=== PATIENT | male | born 1990 | race Caucasian/White ===

== ENCOUNTER 2018-02-07 10:54 | Emergency (ER) | payer SELFPAY ==
--- NOTE | 2018-02-07 11:03 | EDM.PDOC ---
ED HPI GENERAL MEDICAL PROBLEM - General Chief Complaint: Lower Extremity Injury/Pain Stated Complaint: HURT FOOT Time Seen by Provider: 02/07/18 11:02 Source of Information: Reports: Patient History Limitations: Reports: No Limitations - History of Present Illness INITIAL COMMENTS - FREE TEXT/NARRATIVE: HISTORY AND PHYSICAL: []27-year-old male presenting with pain to the right History of Present Illness: []Client was out last night drinking and going down some steps and slipped extending his foot forward causing pain to the top of his foot Review of Systems: As per history of present illness and below otherwise all systems reviewed and negative. Past medical history: As per history of present illness and as reviewed below otherwise noncontributory. Surgical history: As per history of present illness and as reviewed below otherwise noncontributory. Social history: No reported history of drug or alcohol abuse. Family history: As per history of present illness and as reviewed below otherwise noncontributory. Physical exam: Alert and oriented gentleman who is accompanied by his mother. Answering questions appropriately in full sentences. MOther likes to answer for him. HEENT: Atraumatic, normocehpalic, pupils reactive, negative for conjunctival pallor or scleral icterus, mucous membranes moist, throat clear, neck supple, nontender, trachea midline. Lungs: Clear to auscultation, breath sounds equal bilaterally, chest non tender. Heart: S1S2, regular, negative for clicks, rubs, or JVD. Abdomen: Soft, nondistended, nontender. Negative for masses or hepatossplenmegaly. Negative for costovertebral tenderness. Pelvis: Stable nontender. Genitourinary: Deferred. Rectal: Deferred Extremities: Atraumatic, negative for cords or calf pain. Mild dorsal edema, good extension ,less flexion. Pedal pulses are good Neurovascular unremarkable. Neuro: Awake, alert, oriented. Cranial nerves II through XII unremarkable. Cerebellum unremarkable. Motor and sensory unremarkable throughout. Exam nonfocal. Discussed with the patient and his mother that his foot is not broken however he has likely stretched the ligaments and will take a while to heal Tej wrap will be applied to give some support to this area Diagnostics: X-ray right foot[] Therapeutics: [] Impression: [Foot strain] Plan: []Discharged to home Elevate and ice your foot on 20 minutes off 20 minutes If not improving may need to see a teacher of the hearing impaired Definitive disposition and diagnosis as appropriate pending reevaluation and review of above. Onset: Today Right Feet Pain Score (Numeric/FACES): 8 - Related Data Allergies Allergy/AdvReac Type Severity Reaction Status Date / Time No Known Allergies Allergy Verified 02/07/18 11:08 Home Meds: Home Meds . [No Known Home Meds] 02/07/18 [History] Review of Systems - Review of Systems Review Of Systems: ROS reveals no pertinent complaints other than HPI. ED EXAM, GENERAL - Physical Exam Exam: See Below (see dictation) Course - Vital Signs Last Recorded V/S: Last Vital Signs Temp 36.7 C 02/07/18 11:04 Pulse 107 H 02/07/18 11:04 Resp 18 02/07/18 11:04 BP 125/60 02/07/18 11:04 Pulse Ox 98 02/07/18 11:04 - Orders/Labs/Meds Orders: Active Orders 24 hr Category Date Time Status Splinting [RC] ASDIRECTED Care 02/07/18 12:04 Ordered Foot 2V Rt [CR] Stat Exams 02/07/18 11:15 Taken Departure - Departure Time of Disposition: 12:07 Disposition: Home, Self-Care 01 Condition: Good Clinical Impression: Right foot strain Qualifiers: Encounter type: initial encounter Qualified Code(s): S96.911A - Strain of unspecified muscle and tendon at ankle and foot level, right foot, initial encounter - Discharge Information Instructions: Muscle Strain, [id number], Foot Sprain Referrals: PCP,None [Primary Care Provider] - Forms: ED Department Discharge Additional Instructions: The following information is given to patients seen in the emergency department who are being discharged to home. This information is to outline your options for follow-up care. We provide all patients seen in our emergency department with a follow-up referral. The need for follow-up, as well as the timing and circumstances, are variable depending upon the specifics of your emergency department visit. If you don't have a primary care physician on staff, we will provide you with a referral. We always advise you to contact your personal physician following an emergency department visit to inform them of the circumstance of the visit and for follow-up with them and/or the need for any referrals to a consulting specialist. The emergency department will also refer you to a specialist when appropriate. This referral assures that you have the opportunity for followup care with a specialist. All of these measure are taken in an effort to provide you with optimal care, which includes your followup. Under all circumstances we always encourage you to contact your private physician who remains a resource for coordinating your care. When calling for followup care, please make the office aware that this follow-up is from your recent emergency room visit. If for any reason you are refused follow-up, please contact the [facility] emergency department at and asked to speak to the emergency department charge nurse. Foot injury is a strain there were no fractures identified Ibuprofen alternating with Tylenol every 3 hours for discomfort Elevate and ice your right foot on 20 minutes off 20 minutes If not improving will need to follow-up with a teacher of the hearing impaired My Podiatry [facility] - Podiatry [address] [place] [id number] - My Orders Last 24 Hours: My Active Orders 02/07/18 11:15 Foot 2V Rt [CR] Stat 02/07/18 12:04 Splinting [RC] ASDIRECTED - Assessment/Plan Last 24 Hours: My Active Orders 02/07/18 11:15 Foot 2V Rt [CR] Stat 02/07/18 12:04 Splinting [RC] ASDIRECTED
--- NOTE | 2018-02-09 11:09 | CR ---
EXAM DATE: 02/07/18 PATIENT'S AGE: 27 Patient: ML ZELAYA Facility: [place], [place] Site . Site : 1990 Study: XRay Extremity Right foot [id number]/10/2018 11:30:30 AM Ordering Physician: Doctor Chavez Final Report: INDICATION: Trauma. Fall. Pain. TECHNIQUE: Two views of the right foot. FINDINGS: Accounting for technique and patient positioning there is no evidence for acute fracture, dislocation, erosion, or intrinsic skeletal lesion. IMPRESSION: Negative two-view right foot. Dictated by Ravinder Lua MD @ Feb 07 2018 11:38AM (Electronic Signature) Report Signed by Proxy. NACHO
== END 2018-02-07 12:18 | disposition home or self-care (01) ==
LOC: MW.ED 10:54
DX: S96.911A Strain of unspecified muscle and tendon at ankle and foot level, right foot, initial encounter (principal); W01.0XXA Fall on same level from slipping, tripping and stumbling without subsequent striking against object, initial encounter
CPT/HCPCS: 73620-26-RT; 73620-RT; 99282; 99283